=== PATIENT | male | born 1965 | race Two or more races ===

== ENCOUNTER 2024-08-15 07:59 | Day surgery (SDC) | payer BC, SELFPAY ==
--- NOTE | 2024-08-15 | OP_ITS ---
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 POSTOPERATIVE DIAGNOSIS: Enlarging lipoma of the right upper arm, anterior shoulder. PROCEDURE: Excisional biopsy of lipoma right anterior shoulder. SURGEON: Yanick Soler M.D. ANESTHESIA: Local with 0.5% Marcaine plain. ESTIMATED BLOOD LOSS: Less than 3 mL. TOTAL LENGTH OF THE LIPOMA: 5 cm. 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 Indications, risks, benefits, alternatives of proceeding with excisional biopsy under local anesthesia were explained extensively to the patient, including the risks of bleeding, infection, scarring, pain, recurrence, need for further surgery. All of his questions were answered. Informed consent was obtained. PROCEDURE: Patient brought to the operating room, placed in the supine position. The area was prepped and draped in the usual sterile fashion. It was anesthetized with 0.5% Marcaine plain. Incision was made over the long axis of the lesion, in the area of the skin crease, carried down through subcutaneous tissue using sharp dissection. The 5 x 3 cm lipoma was carefully dissected free and sent off to Pathology. The wound was irrigated. Hemostasis achieved with 4-0 Monocryl subcutaneous sutures, and the subcutaneous tissue was re- approximated with these sutures as well. The skin was then closed with a running 4-0 subcuticular Monocryl suture and skin glue. Sterile pressure dressing was applied. Sponge and needle counts were correct x2 per nursing personnel. Patient tolerated procedure well, was discharged back to recovery room and then to home in good condition. CC: Patient?s family physician HALLE
[2024-08-15 08:14] VITALS: BP 103/70; PULSE 78; TEMP 36.4; O2SAT 100
[2024-08-15 09:10] VITALS: BP 118/61; PULSE 76; O2SAT 100
[2024-08-15] MEDS: BUPIVACAINE HCL 0.5% PF 50 MG/10 ML VIAL 6 ML INJ (09:10)
[2024-08-15 09:15] VITALS: BP 113/67; PULSE 72; O2SAT 100
== END 2024-08-15 09:40 | disposition home or self-care (01) ==
PROVIDERS: PCP Nurse Practitioner Family; Visit Provider Surgery
PROC: (CPT 24073; principal; 2024-08-15 09:00)
DX: D17.21 Benign lipomatous neoplasm of skin and subcutaneous tissue of right arm (principal)
CPT/HCPCS: 24073; J0665